=== PATIENT | female | born 1955 | race Caucasian/White ===

== ENCOUNTER 2024-07-15 09:57 | Outpatient (POV) | payer MEDICARE, MEDICAID, SELFPAY ==
--- NOTE | 2024-07-15 10:25 | A.OFFVIS_ITS ---
HPI Data of Consult Patient: new to practice Consult date: 07/15/24 Requesting Physician: Zoila Us APRN Primary Care Provider: Referral Provider, MD Consult Narrative History of present illness: Ms. Peters is a 68 year old female who presents today as a new patient. She is a referral from Sonido Lee. Today she rates her pain a 8 out of 10. Patient states she has chronic low back pain that goes into her bilateral hips and down her left leg. Patient states this been going on for years and progressively worsened. Patient does state that initially she had an episode where she fell off of a footstool and this is what started her pains. Patient states that she has been with her current pain management for about 10 years and they no longer take her insurance. Patient does state that she is looking for someone to take over her medications. Patient has never tried injections due to having a history of a AAA bypass and is on Plavix. 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 Patient states that her pain is constant and affects activities of daily living. Patient states that she tries to be very active and does jose and quilting and cannot function without her pain medications. Patient does have a history of osteoporosis. Patient does state that she was tried on other medications before starting on the oxycodone. Patient states that Lortab made no improvement and that the Percocet ended up increasing her liver enzymes.Patient is currently managed with oxycodone 10 mg 3 times a day, diazepam 2 mg twice a day and gabapentin 600 mg 3 times a day from an outside provider. Her Kamlesh has been reviewed. CC: Zoila Us APRN [facility] Disclaimer: The information contained in this section may have been updated after the patient was seen, as this information can be updated by other users. Social History Smoking Status: Unknown if ever smoked alcohol intake: never current occupational status: other Travel in the last 8 weeks: None Review of Systems Review of Systems Review of systems:: pertinent systems reviewed and negative unless documented below Review of systems (narrative): Review of Systems: General: No recent weight changes, no fever, no sleep disturbances Respiratory: No cough, no shortness of air, no recurring pulmonary infections Cardiovascular/peripheral vascular: No chest pain, no palpitations, no edema, no shortness of breath Gastrointestinal: No new onset incontinence, normal bowel movements reported Genitourinary: No new onset incontinence Musculoskeletal: [Low back pain, bilateral hip pain, left leg pain Psychiatric: [Normal mood/affect] Neurological: [Denies weakness in extremities], [denies balance issues] Meds Home Medications and Allergies Home Medications ?Medication ?Instructions ?Recorded ?Confirmed ?Type atorvastatin 80 mg tablet 80 mg PO DAILY 07/15/24 07/15/24 History carvedilol 6.25 mg tablet 6.25 mg PO DAILY 07/15/24 07/15/24 History clopidogrel 75 mg tablet 75 mg PO DAILY 07/15/24 07/15/24 History cyclobenzaprine 10 mg tablet 10 mg PO TID 07/15/24 07/15/24 History diazepam 2 mg tablet 2 mg PO BID 07/15/24 07/15/24 History ezetimibe 10 mg tablet 10 mg PO DAILY 07/15/24 07/15/24 History gabapentin 600 mg tablet 600 mg PO TID 07/15/24 07/15/24 History oxycodone 10 mg tablet 10 mg PO TID 07/15/24 07/15/24 History potassium chloride 20 mEq 20 meq PO DIRECTED 07/15/24 07/15/24 History tablet,extended release(part/cryst) New Prescriptions to Start Prescriptions: Allergies Allergy/AdvReac Type Severity Reaction Status Date / Time ibuprofen Allergy Verified 07/15/24 10:38 latex Allergy Verified 07/15/24 10:38 lisinopril AdvReac Cough Verified 07/15/24 10:38 Objective Narrative: Physical Exam: General: Alert and oriented x3, no acute distress, pleasant and cooperative Lungs: Respirations even and unlabored, symmetrical chest expansion Eyes: PERRL Musculoskeletal: Flexion and extension of lumbar [spine] somewhat guarded secondary to pain, [antalgic gait noted] Neurological: Speech clear, no gross sensory deficit Assessment and Plan *Assessment and plan (1) Low back pain: Status: Acute Category: Medical Code(s): M54.50 - Low back pain, unspecified (2) Hip pain, bilateral: Status: Acute Category: Medical Code(s): M25.551 - Pain in right hip; M25.552 - Pain in left hip Plan Patient was counseled that we are an interventional pain clinic and we do more injection therapy. Patient was also counseled that we generally do not write any scheduled medications for new patients. Patient does not have any updated imaging and states the most recent what have been a couple of years ago at her previous pain clinic. I did classification counselor the patient that we will have to reach out to this facility and get a copy of the imaging and that there is no guarantee we would be able to do the same medications that she was on. Patient was counseled that I will reach out to Dr. Sorto and review over with her specific case once I have imaging and that she can call at the end of the day for updated response. Patient and daughter acknowledge understanding. Patient has stated that her daughter does have approval to speak on her behalf or hear any information regarding her care. We did reach out to the patient's prior provider to get a copy of their most recent imaging however that office would not send anything over until we had a release. We have reached back out to the patient to see if they can contact this office and get either a copy of it or give verbal consent to send the i maging to our office. I will will wait for a copy of this imaging before discussing with Dr. Sorto regarding taking over her medications. Patient has been instructed to contact the clinic with any concerns before the next appointment. Dr. Sorto has reviewed this note and agrees with this plan of care. This note was dictated using voice recognition software and make contain errors or omissions. All injections are used with Lidocaine or Bupivacaine and Depo Medrol.
[2024-07-15 10:31] VITALS: BP 167/70; PULSE 87; RESP 18; O2SAT 98; BMI 33.2
== END 2024-07-15 23:59 | disposition home or self-care (01) ==
PROVIDERS: Visit Provider Nurse Practitioner Family
DX: M54.50 Low back pain, unspecified (principal); M25.551 Pain in right hip; M25.552 Pain in left hip; Z73.89 Other problems related to life management difficulty; Z79.02 Long term (current) use of antithrombotics/antiplatelets
CPT/HCPCS: 99202; G0463